=== PATIENT | male | born 1945 | race African-American/Black ===

== ENCOUNTER 2024-03-12 11:32 | Inpatient (IN) | payer MEDICARE, MEDICAID ==
[~2024-03-12] VITALS: Ht 175.3 cm; Wt 68.8 kg
[2024-03-12 12:07] LABS: Basophils # (auto) 0 10 ^3/uL (0-0.2); Eosinophils # (auto) 0 10 ^3/uL (0-0.8); Eosinophils % (auto) 0.6 % (0.0-7.0); Hemoglobin 12.6 g/dL (13.5-17.5); Lymphocytes # (auto) 0.9 10 ^3/uL (0.4-5.4); Monocytes # (auto) 0.2 10 ^3/uL (0-1.3); Neutrophils # (auto) 3.4 10 ^3/uL (1.6-8.6); White Blood Cell 4.6 10^3/uL (4.4-10.8)
[2024-03-12] MEDS: DEXTROSE (50%) 50ML SYRG IV ONE (12:08)
[2024-03-12 12:09] VITALS: PULSE 72; RESP 16; O2SAT 97
[2024-03-12 12:10] LABS: Basophils % (auto) 0.8 % (0.0-2.0); Hematocrit 38.7 % (41.0-53.0); Lymphocytes % (auto) 19.1 % (10.0-50.0); Mean Corpuscular Hemoglobin 26.4 pg (28.0-32.0); Mean Corpuscular Hgb Conc. 32.7 g/dL (32.0-36.0); Mean Corpuscular Volume 80.9 fL (80.0-100.0); Monocytes % (auto) 5.3 % (0.0-12.0); Neutrophils % (auto) 74.2 % (37.0-80.0); Nucleated Red Blood Cells % 0.1 %; Red Blood Cells 4.78 10^6/uL (4.5-5.90); Red Cell Distribution Width 21.3 % (11.8-14.3)
[2024-03-12 12:24] LABS: Alanine Aminotransferase 13 U/L (7-40); Albumin 4.2 g/dL (3.2-4.8); Alkaline Phosphatase 108 U/L (46-116); Anion Gap 9 (5-15); Aspartate Aminotransferase 29 U/L (13-40); BUN/Creatinine Ratio 22.6 (10.0-20.0); Bilirubin, Total 0.7 mg/dL (0.2-1.0); Blood Urea Nitrogen 19 mg/dL (9-23); Calcium 9.4 mg/dL (8.7-10.4); Carbon Dioxide 17 mmol/L (20-30); Chloride 111 mmol/L (98-107); Glucose 65 mg/dL (74-106); INR 1.03 (0.9-1.15); Magnesium 1.7 mg/dL (1.6-2.6); Partial Thromboplastin Time 31.3 SEC (24.5-34.5); Potassium 4.8 mmol/L (3.5-5.1); Prothrombin Time 10.8 sec (9.3-11.8); Sodium 137 mmol/L (136-145); Total Protein 6.6 g/dL (5.7-8.2)
[2024-03-12] MEDS: IOHEXOL 350 MG/ML 100ML IJ ONE (12:28)
[2024-03-12] MEDS: ACETAMINOPHEN 325 MG TAB PO ONE (15:10)
[2024-03-12 15:14] LABS: Urine Bacteria None Seen /hpf (None Seen)
[2024-03-12 15:27] LABS: Urine Blood Negative /uL (Negative); Urine Clarity Clear (Clear); Urine Color Light-Yellow (Yellow); Urine Protein, UAD Negative (Negative); Urine Specific Gravity 1.037 (1.001-1.035); Urine Urobilinogen Normal (Negative); Urine WBC <1 /hpf (0 - 3)
[2024-03-12] MEDS ORDERED: NITROGLYCERIN 0.4 MG SL TAB SL PRN ×2 (17:30→17:45)
[2024-03-12] MEDS ORDERED: DEXTROSE (50%) 50ML SYRG IV PRN (17:30)
[2024-03-12] MEDS ORDERED: ASPirin-EC 81 mg tab PO ONE (17:30)
[2024-03-12] MEDS ORDERED: MORPHINE SULFATE INJ 2 MG/ml SYRG IV PRN ×2 (17:30→17:45)
[2024-03-12] MEDS ORDERED: ACETAMINOPHEN 325 MG TAB PO PRN (17:30)
[2024-03-12] MEDS ORDERED: SODIUM CHLORIDE 0.9% 1,000 ML IV SCH (17:30)
[2024-03-12] MEDS ORDERED: levETIRAcetam 1000 mg/100ml 100 ML IV ONE (17:30)
[2024-03-12] MEDS ORDERED: ONDANSETRON HCL 4 MG/2 ML VIAL IV PRN ×2 (17:30→17:45)
[2024-03-12] MEDS ORDERED: ACCU-CHEK COMFORT CURVE STRIP VI SCH (18:00)
[2024-03-12] MEDS: ACCU-CHEK COMFORT CURVE STRIP VI SCH (18:26)
[2024-03-12] MEDS: DEXTROSE (50%) 50ML SYRG IV PRN (18:34)
[2024-03-12] MEDS: ASPirin-EC 81 mg tab PO ONE (18:34)
[2024-03-12] MEDS: levETIRAcetam 1000 mg/100ml 100 ML IV ONE (18:35)
[2024-03-12] MEDS: SODIUM CHLORIDE 0.9% 1,000 ML IV SCH (18:36)
[2024-03-12] MEDS ORDERED: SACU1TAB7 PO (19:20)
[2024-03-12] MEDS ORDERED: CLOP75TA70 PO (19:20)
[2024-03-12] MEDS ORDERED: POTA-180 PO (19:20)
[2024-03-12] MEDS ORDERED: LEVO125T7 PO (19:20)
[2024-03-12 19:30] VITALS: PULSE 67; RESP 14; O2SAT 97
[2024-03-12] MEDS ORDERED: LORazepam 2MG/ML-1ML VIAL IV PRN ×2 (19:30→23:15)
[2024-03-12 21:00] VITALS: BP 142/80; PULSE 75; RESP 14; TEMP 98.2; O2SAT 99
[2024-03-12] MEDS: ATORVASTATIN 20 MG TAB PO SCH (21:35)
[2024-03-12] MEDS ORDERED: ATORVASTATIN 20 MG TAB PO SCH (22:00)
[2024-03-12] MEDS ORDERED: levETIRAcetam 500 MG/5ML ORAL SOLN UD PO SCH (22:00)
[2024-03-12] MEDS: levETIRAcetam 500 MG/5ML ORAL SOLN UD PO SCH (23:04)
[2024-03-12] MEDS: D5W/SOD CHL 0.45% 1,000 ML IV SCH (23:09)
[2024-03-12 23:24] VITALS: BP 147/77; PULSE 60; RESP 14; TEMP 97.6; O2SAT 99
[2024-03-12 23:24] LABS: Triglycerides 243 mg/dL (< 150)
[2024-03-12 23:25] LABS: LDL Cholesterol 130 mg/dL (< 100)
[2024-03-12 23:26] LABS: Cholesterol 231 mg/dL (< 200); HDL Cholesterol 64 mg/dL (40-59)
[2024-03-13] VITALS (9 sets, daily range): BP systolic 130–166; BP diastolic 64–85; PULSE 50–86; RESP 14–20; TEMP 97.9–98.6; O2SAT 97–100
[2024-03-13] MEDS ORDERED: CLOP75TA70 PO (03:11)
[2024-03-13] MEDS ORDERED: AMIO200T33 PO (03:11)
[2024-03-13] MEDS ORDERED: DOCU-94 PO (03:11)
[2024-03-13] MEDS ORDERED: LEV100T GT (03:11)
[2024-03-13] MEDS: LEVOTHYROXINE SODIUM 25 MCG TAB PO SCH (06:09)
[2024-03-13] MEDS: LEVOTHYROXINE SODIUM 100 MCG TAB PO SCH (06:09)
[2024-03-13 06:49] LABS: Alkaline Phosphatase 103 U/L (46-116); Anion Gap 4 (5-15); Aspartate Aminotransferase 17 U/L (13-40); BUN/Creatinine Ratio 9.2 (10.0-20.0); Calcium 9.6 mg/dL (8.7-10.4); Carbon Dioxide 19 mmol/L (20-30); Chloride 112 mmol/L (98-107); Glucose 93 mg/dL (74-106); Potassium 3.9 mmol/L (3.5-5.1); Sodium 135 mmol/L (136-145)
[2024-03-13 06:50] LABS: Alanine Aminotransferase < 9 U/L (7-40); Albumin 3.9 g/dL (3.2-4.8); Blood Urea Nitrogen 7 mg/dL (9-23); Total Protein 6.8 g/dL (5.7-8.2)
[2024-03-13 07:02] LABS: Basophils # (auto) 0 10 ^3/uL (0-0.2); Eosinophils # (auto) 0.2 10 ^3/uL (0-0.8); Hemoglobin 13.1 g/dL (13.5-17.5); Lymphocytes # (auto) 1.3 10 ^3/uL (0.4-5.4); Monocytes # (auto) 0.4 10 ^3/uL (0-1.3); Neutrophils # (auto) 1.5 10 ^3/uL (1.6-8.6); White Blood Cell 3.3 10^3/uL (4.4-10.8)
[2024-03-13 07:06] LABS: Basophils % (auto) 0.8 % (0.0-2.0); Hematocrit 40.4 % (41.0-53.0); Lymphocytes % (auto) 38.4 % (10.0-50.0); Mean Corpuscular Hemoglobin 26.2 pg (28.0-32.0); Mean Corpuscular Hgb Conc. 32.4 g/dL (32.0-36.0); Mean Corpuscular Volume 80.9 fL (80.0-100.0); Monocytes % (auto) 11.7 % (0.0-12.0); Neutrophils % (auto) 44.1 % (37.0-80.0); Nucleated Red Blood Cells % 0.1 %
[2024-03-13 07:07] LABS: Red Cell Distribution Width 20.9 % (11.8-14.3)
[2024-03-13] MEDS ORDERED: ASPirin-EC 81 mg tab PO SCH (10:00)
[2024-03-13] MEDS ORDERED: ENOXAPARIN SOD 40 MG/0.4 ML SYRINGE SC SCH (10:00)
[2024-03-13] MEDS: ASPirin-EC 81 mg tab PO SCH (11:54)
[2024-03-13] MEDS: ENOXAPARIN SOD 40 MG/0.4 ML SYRINGE SC SCH (11:54)
[2024-03-13] MEDS: CLOPIDOGREL BISULFATE 75 MG TAB PO SCH (11:54)
[2024-03-13] MEDS: POTASSIUM CHL 20 Meq TABLET PO SCH (11:55)
[2024-03-13 14:31] LABS: Base Excess -6.9 mmol/L (-2.0-2.0)
[2024-03-13] MEDS ORDERED: TRAM50TA2 PO (17:16)
[2024-03-13] MEDS: FOLIC ACID 1 MG, MAGNESIUM SULF SDV 50% 8 MEQ, MULTIPLE VITAMIN 10 ML, THIAMINE INJ 100... INJ SCH (18:00)
[2024-03-13] MEDS: ACETAMINOPHEN 325 MG TAB PO PRN (18:40)
[2024-03-13] MEDS: SACUBITRIL-VALSARTAN 24mg/26mg TAB PO SCH (22:06)
[2024-03-14] VITALS (8 sets, daily range): BP systolic 143–163; BP diastolic 72–86; PULSE 56–66; RESP 17–20; TEMP 97.6–97.9; O2SAT 98–100
[2024-03-14 07:07] LABS: Calcium 9.5 mg/dL (8.7-10.4); Chloride 113 mmol/L (98-107); Potassium 4.6 mmol/L (3.5-5.1); Sodium 139 mmol/L (136-145)
[2024-03-14 07:08] LABS: Anion Gap 7 (5-15); Carbon Dioxide 19 mmol/L (20-30)
[2024-03-14 07:14] LABS: BUN/Creatinine Ratio 11.6 (10.0-20.0); Blood Urea Nitrogen 8 mg/dL (9-23); Glucose 88 mg/dL (74-106)
[2024-03-14 07:25] LABS: Basophils # (auto) 0 10 ^3/uL (0-0.2); Basophils % (auto) 0.8 % (0.0-2.0); Eosinophils # (auto) 0.2 10 ^3/uL (0-0.8); Lymphocytes # (auto) 1.4 10 ^3/uL (0.4-5.4); Monocytes # (auto) 0.4 10 ^3/uL (0-1.3); Neutrophils # (auto) 1.5 10 ^3/uL (1.6-8.6); White Blood Cell 3.5 10^3/uL (4.4-10.8)
[2024-03-14 07:30] LABS: Eosinophils % (auto) 5.4 % (0.0-7.0); Hematocrit 42.4 % (41.0-53.0); Hemoglobin 13.4 g/dL (13.5-17.5); Lymphocytes % (auto) 40.3 % (10.0-50.0); Mean Corpuscular Hemoglobin 25.7 pg (28.0-32.0); Mean Corpuscular Hgb Conc. 31.5 g/dL (32.0-36.0); Mean Corpuscular Volume 81.7 fL (80.0-100.0); Monocytes % (auto) 10.9 % (0.0-12.0); Neutrophils % (auto) 42.6 % (37.0-80.0); Nucleated Red Blood Cells % 0.1 %; Red Blood Cells 5.19 10^6/uL (4.5-5.90); Red Cell Distribution Width 21.2 % (11.8-14.3)
[2024-03-14] MEDS: NICOTINE 21MG/24 HR TOPICAL PATCH TD ONE (16:48)
[2024-03-15] MEDS ORDERED: NICOTINE 21MG/24 HR TOPICAL PATCH TD SCH (10:00)
== END 2024-03-14 18:50 | disposition home health service (06) | DRG 100 ==
LOC: ER 11:32 → EDBD 11:32 → ER 17:37 → TELE 17:37 → TELE-WESTW 22:11
PROVIDERS: ADMIT Internal Medicine Pulmonary Disease; ATTEND Internal Medicine Pulmonary Disease
DX: G40.409 Other generalized epilepsy and epileptic syndromes, not intractable, without status epilepticus (principal); G93.41 Metabolic encephalopathy; I63.9 Cerebral infarction, unspecified; E87.20 Acidosis, unspecified; F10.239 Alcohol dependence with withdrawal, unspecified; I50.20 Unspecified systolic (congestive) heart failure; I42.6 Alcoholic cardiomyopathy; R47.01 Aphasia; G83.84 Todd's paralysis (postepileptic); I25.10 Atherosclerotic heart disease of native coronary artery without angina pectoris; E03.9 Hypothyroidism, unspecified; J44.9 Chronic obstructive pulmonary disease, unspecified; I48.0 Paroxysmal atrial fibrillation; I25.2 Old myocardial infarction; Z95.810 Presence of automatic (implantable) cardiac defibrillator; Z82.49 Family history of ischemic heart disease and other diseases of the circulatory system; Z80.9 Family history of malignant neoplasm, unspecified; Z79.02 Long term (current) use of antithrombotics/antiplatelets; Z79.82 Long term (current) use of aspirin; Z79.899 Other long term (current) drug therapy; Z87.891 Personal history of nicotine dependence; Y90.9 Presence of alcohol in blood, level not specified
CPT/HCPCS: 36415; 36600; 70450; 70496; 71045; 80048; 80053; 80061; 80320; 81001; 82805; 82962; 83735; 83880; 84443; 84484; 85025; 85610; 85730; 92610; 93005; 93886; 95819; 96365; 96375; 96376; 97110; 97116; 97163; G0378